=== PATIENT | female | born 1940 | race Caucasian/White ===

== ENCOUNTER → 2016-10-19 | Outpatient (CLI) | payer OTHER ==
[~2016-10-19] MED LIST: IOPAMIDOL (ISOVUE-300) 100 ML BTL ONE
[2016-10-19 13:09] LABS: CREATININE 0.8 mg/dL (0.6-1.0); GLOMERULAR FILTRATION RATE > 60
== END ==
LOC: FIMAGING 12:23
PROVIDERS: ATTEND Specialist
DX: Z09 Encounter for follow-up examination after completed treatment for conditions other than malignant neoplasm (principal); Z85.528 Personal history of other malignant neoplasm of kidney; Z90.5 Acquired absence of kidney; N20.0 Calculus of kidney
CPT/HCPCS: 74160; Q9967

== ENCOUNTER → 2017-02-05 | Outpatient (CLI) | payer OTHER | LOC: FIMAGING 09:53 | PROVIDERS: ATTEND Internal Medicine Hematology & Oncology | DX: Z12.31 Encounter for screening mammogram for malignant neoplasm of breast (principal) | CPT/HCPCS: G0202 ==

== ENCOUNTER → 2017-02-09 | Outpatient (CLI) | payer OTHER ==
[~2017-02-09] MED LIST changes: +GADOBUTROL 10 ML VIAL IVP ONE; -IOPAMIDOL (ISOVUE-300) 100 ML BTL ONE
== END ==
LOC: FIMAGING 19:26
PROVIDERS: ATTEND Internal Medicine Hematology & Oncology
DX: M47.896 Other spondylosis, lumbar region (principal); M47.897 Other spondylosis, lumbosacral region; M47.894 Other spondylosis, thoracic region; M48.06 Spinal stenosis, lumbar region; M48.07 Spinal stenosis, lumbosacral region; M99.73 Connective tissue and disc stenosis of intervertebral foramina of lumbar region; M89.38 Hypertrophy of bone, other site
CPT/HCPCS: 72158; A9585

== ENCOUNTER → 2017-11-11 | Outpatient (CLI) | payer OTHER | LOC: FIMAGING 12:39 | PROVIDERS: ATTEND Nurse Practitioner | DX: M51.36 Other intervertebral disc degeneration, lumbar region (principal) ==

== ENCOUNTER → 2018-01-19 | Outpatient (CLI) | payer OTHER | DX: M81.0 Age-related osteoporosis without current pathological fracture (principal); Z78.0 Asymptomatic menopausal state; Z91.81 History of falling ==

== ENCOUNTER 2018-01-27 09:15 | Inpatient (IN) | payer OTHER ==
[2018-01-31] MEDS ORDERED: ceFAZolin 2 GM/DEXTROSE 100 ML IV ONE (10:49)
[2018-01-31] MEDS ORDERED: GABAPENTIN 300 MG CAP PO ONE (10:49)
[2018-01-31] MEDS ORDERED: morphINE SR 15 MG TAB PO ONE (10:49)
[2018-01-31] MEDS ORDERED: ACETAMINOPHEN 500 MG TAB PO ONE (10:49)
[2018-02-24] MEDS ORDERED: LR 1,000 ML IV ONE (05:51)
[2018-02-24] MEDS ORDERED: LIDOCAINE 2% 100 MG/5 ML SYR ONE (06:56)
[2018-02-24] MEDS ORDERED: SUCCINYLCHOLINE CHLORIDE 200 MG/10 ML SYR IVP ONE (06:56)
[2018-02-24] MEDS ORDERED: fentaNYL 250 MCG/5 ML INJ ONE (06:57)
[2018-02-24] MEDS ORDERED: PHENYLEPHRINE HCL 100 MCG/ML SYR ONE (06:57)
[2018-02-24] MEDS ORDERED: MIDAZOLAM 2 MG/2 ML VIAL ONE (06:57)
[2018-02-24] MEDS ORDERED: PROPOFOL/EMULSION 500 MG/50 ML BOTTLE IV ONE ×4 (06:57→08:26)
[2018-02-24] MEDS ORDERED: GLYCOPYRROLATE 0.2 MG/1 ML VIAL ONE (06:58)
[2018-02-24] MEDS ORDERED: BUPIVACAINE 0.5% 30 ML SDV ONE (06:59)
[2018-02-24] MEDS ORDERED: THROMBIN (BOVINE) 20,000 UNIT VIAL TP ONE (06:59)
[2018-02-24] MEDS ORDERED: CHLORHEXIDINE GLUC HIBICLENS 118 ML BTL TP ONE (06:59)
[2018-02-24] MEDS ORDERED: BACITRACIN 50,000 UNITS/10 ML SYR IRR ONE (06:59)
[2018-02-24] MEDS ORDERED: CITRATE DEXTROSE SOLN 500 ML BAG ONE (06:59)
[2018-02-24] MEDS ORDERED: ACETAMINOPHEN 500 MG TAB PO ONE (07:05)
[2018-02-24] MEDS ORDERED: GABAPENTIN 300 MG CAP PO ONE (07:05)
[2018-02-24] MEDS ORDERED: ceFAZolin 2 GM/DEXTROSE 100 ML IV ONE (07:05)
[2018-02-24] MEDS ORDERED: morphINE SR 15 MG TAB PO ONE (07:07)
--- NOTE | 2018-02-24 07:09 | PDHPUP ---
History & Physical Update H&P update statement: This history and physical update is based on an assessment of the patient which was completed after admission or registration (within 24 hours), but prior to the surgery/procedure. H&P update: H&P reviewed & patient examined, no change in patient's condition since H&P completed (Consents signed and site marked. All questions answered.)
--- NOTE | 2018-02-24 08:19 | PDANEPAE ---
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 URGE INCONTINECE. WEARS BRIEFS OR PADS - Liver History Hx Hepatic Disorders: No - Neurological & Psychiatric Hx Hx Neurological and Psychiatric Disorders: Yes Neurological / Psychiatric History Comment: DEPRESSION/ INSOMNIA - Cancer History Hx Cancer: Yes Cancer History Comment: ANAL CANCER 03/2003 S/P CHEMO AND RADIATION - Congenital Disorder History Hx Congenital Disorders: No - GI History Hx Gastrointestinal Disorders: Yes Gastrointestinal History Comment: HX OF ANAL CA. HX OF COLONOSCOPIES. INCONTINENCE OF BOWELS NOT FREQUENT URINARY INCONTINENCE - Other Health History Other Health History: DRY MACULAR DEGENERATION. OCCASSIONAL SKIN CA. Osteoporosis - Chronic Pain History Chronic Pain: Yes (LOW BACK PAIN AT TIMES) - Surgical History Prior Surgeries: COLONOSCOPY 2010. LEFT FOOT SURGERY 07/2007 BUNIONECTOMY AND HAMMERTOE REPAIR. MOHS SURGERY FOR BASAL CELL CA A COUPLE TIMES. HYSTERECTOMY PARTIAL VAGINAL 1980 FOR "ABNORMAL CELLS". LEFT LEG SURGERY 2010 PERINEAL NEUROPATHY. Left partial nephrectomy ANE Review of Systems Review of Systems: - Exercise capacity METS (RN): 4 METS ANE Patient History - Allergies Allergies/Adverse Reactions: No Known Allergies Allergy (Verified 02/21/18 17:33) - Home Medications Home Medications: C/E/Zn/Cu/OM3/DHA/EPA/LUT/ZEAX [Preservision Areds 2 Softgel] 1 each PO BID #0 01/02/16 [Last Taken 02/18/18] Herbals/Supplements -Info Only 1 ea PO DAILY 01/02/16 [Last Taken 02/18/18] Hydrocodone/Acetaminophen [Daphne 5/325 (*)] 1 each PO DAILY PRN 01/02/16 [Last Taken 02/23/18] Loperamide HCl [Loperamide] 4 mg PO DAILY 01/02/16 [Last Taken 02/23/18] Talala-3 Fatty Acids [Fish Oil 1000 mg (*)] 1,000 mg PO BID 01/02/16 [Last Taken 02/18/18] Venlafaxine HCl 75 mg PO DAILY 01/02/16 [Last Taken 02/23/18] Acetaminophen [Tylenol 325mg (*)] 650 mg PO Q4 PRN 01/13/18 [Last Taken 02/23/18 ] Acetamn/Diphenhydramine 500/25 [Tylenol PM (*)] 1 each PO HS PRN 01/13/18 [Last Taken 02/23/18] Multivitamins [Multivitamin (*)] 1 each PO DAILY 01/13/18 [Last Taken 02/18/18] - NPO status NPO Since - Liquids (Date): 02/24/18 NPO Since - Liquids (Time): 01:35 NPO Since - Solids (Date): 02/23/18 NPO Since - Solids (Time): 01:35 - Smoking Hx Smoking Status: Never smoked - Family Anes Hx Family Hx Anesthesia Complications: NONE ANE Labs/Vital Signs - Vital Signs Blood Pressure: 99/60 Heart Rate: 59 Respiratory Rate: 16 O2 Sat (%): 93 Height: 153.67 cm Weight: 47.627 kg ANE Physical Exam - Airway Neck exam: FROM Mallampati Score: Class 2 Mouth exam: normal dental/mouth exam - Pulmonary Pulmonary: no respiratory distress - Cardiovascular Cardiovascular: regular rate and rhythym - ASA Status ASA Status: II ANE Anesthesia Plan Anesthesia Plan: general endotracheal anesthesia (Neuro motor monitoring, anesthetic to maximize this process w/o compromising safety)
[2018-02-24] MEDS ORDERED: diphenhydrAMINE 25 MG CAP PO PRN (08:48)
[2018-02-24] MEDS ORDERED: BISACODYL 10 MG SUPP PR PRN (08:48)
[2018-02-24] MEDS ORDERED: LACTULOSE 20 GM/30 ML UDCUP PO PRN (08:48)
[2018-02-24] MEDS ORDERED: ONDANSETRON 4 MG/2 ML VIAL IVP PRN (08:48)
[2018-02-24] MEDS ORDERED: POLYETHYLENE GLYCOL 3350 17 GM PKT PO PRN (08:48)
[2018-02-24] MEDS ORDERED: ONDANSETRON DISINTEGRATING 4 MG TAB PO PRN (08:48)
[2018-02-24] MEDS ORDERED: MAGNESIUM HYDROXIDE 30 ML UDCUP PO PRN (08:48)
--- NOTE | 2018-02-24 08:56 | POSTOPPROG ---
Post Op Note Date of Operation: 02/28/18 Surgeon: Artem Esquivel Key Filer: CHARLY Persaud Anesthesia: GET(General Endotracheal) Pre-op Diagnosis: lumbar stenosis Post-op Diagnosis: lumbar stenosis Indication: lumbar stenosis Procedure: L5/S1 ALIF Inf/Abcess present in the surg proc area at time of surgery?: No PA Addendum - Addendum .: S: resting comfortably O: NAD A&OX 3 MAEX4 5/5 and equal in BUE & BLE A/P 77F s/p L5/S1 ALIF -Optimize pain management -CLD -post op xrays pending -LSO when OOB -PT/OT -DVT Prohphx: TEDS, SCDs, Lovenpox okay POD1 -Please notify NS with any change in neuro/motor exam
[2018-02-24] MEDS ORDERED: NS 1,000 ML IV SCH (09:00)
[2018-02-24] MEDS ORDERED: NEOSTIGMINE METHYLSULFATE 5 MG/5 ML SYR ONE (09:59)
[2018-02-24] MEDS ORDERED: HYDROmorphONE/DILAUDID 2 MG/ML INJ ONE (10:00)
[2018-02-24] MEDS ORDERED: NALOXONE HCL 0.4 MG/ML INJ ONE (10:25)
--- NOTE | 2018-02-24 11:42 | GOP ---
DATE OF OPERATION: 02/24/2018 SURGEON: Artem Esquivel MD REHAB/PRE VOCATIONAL COUNSELOR: distribution center assistant, Barrett Mcmahon. ANESTHESIA: General. PREOPERATIVE DIAGNOSIS: 1. Lumbar spondylosis L2 through S1 with spinal stenosis. 2. L5-S1 grade 1/grade 2 spondylolisthesis with bilateral spondylolysis and severe bilateral foramin al stenosis. 3. Lower extremity radiculopathy and weakness. 4. Treatment refractory to nonoperative intervention. POSTOPERATIVE DIAGNOSIS: 1. Lumbar spondylosis L2 through S1 with spinal stenosis. 2. L5-S1 grade 1/grade 2 spondylolisthesis with bilateral spondylolysis and severe bilateral foramin al stenosis. 3. Lower extremity radiculopathy and weakness. 4. Treatment refractory to nonoperative intervention. PROCEDURE PERFORMED: 1. Anterior arthrodesis with approach to L5-S1. 2. L5-S1 discectomy and interbody fusion using a 12 mm 8 degree perimeter peek cage for the morseliz ed autograft and allograft. 3. Anterior lumbar fusion L5-S1 with a large Seeker Wire[employer]stronic Pivox plate with 1 screw in L5 and 1 screw in S1. 4. Use of intraoperative fluoroscopy, less than 1 hour of physician time. 5. Use of neuromonitoring. FINDINGS: SPECIMENS: None. ESTIMATED BLOOD LOSS: 800 mL. INDICATIONS: Ms. Rojas is a 77-year-old woman, who has had bilateral lower extremity radiculopathy with foot weakness. She had evidence of spondylosis with stenosis L2 through L5 with a grade 2 spon dylolisthesis at L5-S1 with bilateral foraminal stenosis. After discussion of the risks, benefits, a nd treatment alternatives, we decided to proceed forth with surgical intervention as described above. The goal of surgery is to see if we can avoid completing a large posterior surgery and get away wit h an anterior surgery alone to help decompress her pain and nerve roots from her pain and weakness st andpoint. This is considered to be stage I of potentials 2 stage surgical procedure, in which stage 2 will be determined at a later time. DESCRIPTION OF PROCEDURE: The patient was brought to the operating theater and underwent general end otracheal anesthesia without complications. She had Venodynes, DENYS hose, and appropriate lines place d by Anesthesia. Her arms were outstretch at her sides and a small bump placed on the small of her l umbar spine. The lower abdomen was then prepped and draped in the usual sterile surgical fashion. A time-out was completed per protocol. The patient received antibiotics within [address] Del Valle and his team will dictate, in a separate operative report, the anterior abdominal approach to the L5-S1 level. Once we confirmed our location, we then incised the L5-S1 disk space with an 11 blade. We then completed an L5-S1 diskectomy and prepared the cartilaginous endplates. We sequentia lly distract the L5-S1 disk interspace and after measuring the interbody space, we placed a 12 mm 8 d egree perimeter PEEK cage filled with morselized autograft and allograft into the L5-S1 disk space. AP and lateral x-rays demonstrated good placement of the hardware. We then secured a large Medtronic Pivox plate with a screw into L5 and a screw in S1. X-rays demonstrated good placement of this hard merritt. At this point, Dr. Tea Del Valle and his team will dictate in a separate operative report the abdominal closure. At this point, there were no changes in neuro monitoring and the patient tolerate d this portion of procedure well. The sponge, needle and instrument counts were correct in this portion of the procedure. COMPLICATIONS: None. CO-SURGEON: Dr. Baldo Del Valle. /[id number]/MODL
[2018-02-24] MEDS ORDERED: NALOXONE HCL 0.4 MG/ML INJ IVP PRN (11:48)
[2018-02-24] MEDS ORDERED: MEPERIDINE 25 MG/0.5 ML AMP IVP PRN (11:48)
[2018-02-24] MEDS ORDERED: HYDROmorphONE/DILAUDID 2 MG/ML INJ IVP PRN (11:48)
[2018-02-24] MEDS ORDERED: oxyCODONE IR 5 MG TAB PO PRN (11:48)
--- NOTE | 2018-02-24 12:19 | POSTOPPROG ---
Post Op Note Date of Operation: 02/24/18 Surgeon: Baldo Del Valle Inspector Repairer [place]: ALTA Anesthesiologist: MASSIELS Anesthesia: GET(General Endotracheal) Pre-op Diagnosis: SPINAL INSTABILITY Post-op Diagnosis: SAME Indication: EXPOSURE FOR SPINE FUSION Procedure: ANTERIOR EXPOSURE L5-S1 Findings: ADEQUATE EXPOSURE Inf/Abcess present in the surg proc area at time of surgery?: No Depth: Organ Space EBL: Minimal Complications: NONE
--- NOTE | 2018-02-24 13:48 | PDMN ---
Medical Necessity Medical necessity: Pt meets INPT criteria per MD as of 02/24/18 (CASE Inpt Only surgery L5/S1 ALIF).
--- NOTE | 2018-02-24 14:41 | POSTANESTH ---
Post Anesthetic Evaluation Cardiovascular Status: Normal, Stable Respiratory Status: Similar to Pre-op Cond. Level of Consciousness/Mental Status: Can Participate in Eval, Alert and Oriented Pain Control: Adequate, Prn Tx Ordered Nausea/Vomiting Control: Adequate, Prn Tx Ordered Complications Possibly Related to Anesthesia: None Noted (sleept and prolonged PACU stay because she wanted to sleep on her belly and that disrupted her incision causing bleeding. surgery requested she stay until that was under control)
[2018-02-24] MEDS: ceFAZolin 2 GM/DEXTROSE 100 ML IV SCH ×2 (15:00→22:53)
[2018-02-24] MEDS: LOPERAMIDE HCL 2 MG CAP PO SCH (15:37)
[2018-02-24] MEDS: FAMOTIDINE 20 MG TAB PO SCH ×2 (15:37→22:52)
[2018-02-24] MEDS: MULTIVITAMINS 1 EACH TAB PO SCH (15:37)
[2018-02-24] MEDS: SENNOSIDES/DOCUSATE SODIUM TAB PO SCH ×2 (15:38→22:52)
[2018-02-24] MEDS: METHOCARBAMOL 750 MG TAB PO PRN (15:39)
[2018-02-24] MEDS: VENLAFAXINE HCL 75 MG TAB PO SCH (15:52)
[2018-02-25 04:46] LABS: PLATELET COUNT 277 10^3/uL (150-400)
--- NOTE | 2018-02-25 07:56 | NEUSURGPN ---
Date of Surgery: 02/24/18 Post Op Day: 1 Assessment/Plan: Assessment: 77F s/p L5/S1 ALIF POD#1 Plan: -Pt reports improvement in pre operative BLE pain -Optimize pain management, currently well controlled -CLD, diet per general surgery -post op xrays pending -LSO when OOB -PT/OT -DVT Prohphx: TEDS, SCDs, Lovenox okay POD1-today -Discussed patient with Dr Esquivel Please call neurosurgery with any questions/concerns Subjective: Doing well this am, abdomen sore Objective: AxO x3 PERRLA 5/5 BUE, BLE sensation intact to light touch BLE Dressing some dried SA fluid on left side, incision CDI Neuro Check Frequency: per routine Urinary Catheter in Place: No - Physician Discussed Patient with Dr.: Esquivel Neurosurgery Physical Exam - Vitals, I&O, Labs I and O 02/24/18 02/25/18 02/26/18 05:59 05:59 05:59 Intake Total 2416 Output Total 1220 Balance 1196 Weight 47.627 kg Intake: IV Intake (ml) 1700 IV Infused (ml) 716 Lr 1,000 ml @ As Directed 239 IV ONCE ONE Rx#: [id number] Ns 1,000 ml @ 75 mls/hr 377 IV CONT ELLYN Rx#: [id number] ceFAZolin 2 GM/DEXTROSE 100 100 ml @ 200 mls/hr IV Q8HRS ELLYN Rx#:[id number] Output: Urine (ml) 1220 Catheter 1220 Vital Signs Temp Pulse Resp BP Pulse Ox 36.8 C 77 16 110/47 L 97 02/24/18 23:22 02/24/18 23:22 02/24/18 23:22 02/24/18 23:22 02/24/18 23:22 Laboratory Results 02/25/18 04:23 ICD10 Worksheet Patient Problems: Problems Problem Status Onset Clear cell carcinoma of kidney Acute Dehydration Acute Renal mass, left Acute Vomiting and diarrhea Acute
[2018-02-25] MEDS: FAMOTIDINE 20 MG TAB PO SCH ×2 (10:11→10:28)
[2018-02-25] MEDS: METHOCARBAMOL 750 MG TAB PO PRN (10:23)
[2018-02-25] MEDS: LOPERAMIDE HCL 2 MG CAP PO SCH (10:23)
[2018-02-25] MEDS: VENLAFAXINE HCL 75 MG TAB PO SCH (10:23)
[2018-02-25] MEDS: SENNOSIDES/DOCUSATE SODIUM TAB PO SCH ×2 (10:24→20:49)
[2018-02-25] MEDS: MULTIVITAMINS 1 EACH TAB PO SCH (10:24)
[2018-02-25] MEDS: ENOXAPARIN 40 MG/0.4 ML SYR SC SCH (10:25)
--- NOTE | 2018-02-25 13:11 | SOAPPROG ---
SOAP Progress Note Assessment/Plan: Assessment: 77 y/o M s/p anterior exposure for L5-S1 ALIF POD #1 S: No complaints. Pain controlled. Denies passing gas yet. O: Alert Afebrile RRR No increased WOB Abdomen: dressing taken down. Incision cdi, abdomen soft, nontender, +BS Plan: Advance to regular diet. 02/25/18 13:09 Objective: Vital Signs Temp Pulse Resp BP Pulse Ox 36.7 C 72 16 112/54 L 98 02/25/18 11:49 02/25/18 11:49 02/25/18 11:49 02/25/18 11:49 02/25/18 11:49 Laboratory Results 02/25/18 04:23 02/24/18 02/25/18 02/26/18 05:59 05:59 05:59 Intake Total 2416 Output Total 1220 300 Balance 1196 -300 ICD10 Worksheet Patient Problems: Problems Problem Status Onset Clear cell carcinoma of kidney Acute Dehydration Acute Renal mass, left Acute Vomiting and diarrhea Acute
[2018-02-25] MEDS: HYDROCODONE/APAP 5/325 TAB PO PRN ×2 (14:23→20:49)
--- NOTE | 2018-02-25 15:47 | ASMTCMCOM ---
CM Note CM Note Notes: Pt s/p planned surgery for lumbar stenosis. Pt resides with spouse who can assist at home. OT/PT rec home. Pt likely independent, CM to follow pt progress. D/c plan of care: Most likely home with spouse support Date Signed: 02/25/2018 03:46 PM Electronically Signed By:ALYSSA Reyna
--- NOTE | 2018-02-26 08:28 | SOAPPROG ---
SOAP Progress Note Assessment/Plan: Assessment: 77 yo F POD #2 L5/S1 ALIF Plan: -neuro: stable and doing well overall -Optimize pain management, currently well controlled -diet per general surgery -post op xrays look good -LSO when OOB -PT/OT -DVT Prohphx: TEDS, SCDs, Lovenox - possible discharge today if doing well -Discussed patient with Dr Nicole Please call neurosurgery with any questions/concerns 02/26/18 08:26 Subjective: continued incisional pain, no leg pain, no weakness. Objective: Vital Signs Temp Pulse Resp BP Pulse Ox 37.3 C 69 12 128/60 H 97 02/26/18 08:00 02/26/18 08:00 02/26/18 08:00 02/26/18 08:00 02/26/18 08:00 Laboratory Results 02/25/18 04:23 02/25/18 02/26/18 02/27/18 05:59 05:59 05:59 Intake Total 2416 Output Total 1220 950 Balance 1196 -950 AAOx4, +FC PERRL, EOMI, no facial droop 5/5 + light touch C/D/I ICD10 Worksheet Patient Problems: Problems Problem Status Onset Clear cell carcinoma of kidney Acute Dehydration Acute Renal mass, left Acute Vomiting and diarrhea Acute
[2018-02-26] MEDS: SENNOSIDES/DOCUSATE SODIUM TAB PO SCH ×2 (08:35→20:35)
[2018-02-26] MEDS: ENOXAPARIN 40 MG/0.4 ML SYR SC SCH (08:36)
[2018-02-26] MEDS: VENLAFAXINE HCL 75 MG TAB PO SCH (08:36)
[2018-02-26] MEDS: FAMOTIDINE 20 MG TAB PO SCH (08:36)
[2018-02-26] MEDS: MULTIVITAMINS 1 EACH TAB PO SCH (08:36)
[2018-02-26] MEDS: LOPERAMIDE HCL 2 MG CAP PO SCH (08:43)
[2018-02-26] MEDS: HYDROCODONE/APAP 5/325 TAB PO PRN ×3 (08:59→16:32)
--- NOTE | 2018-02-26 17:46 | SOAPPROG ---
SOAP Progress Note Assessment/Plan: Assessment: AFEBRILE/VITAL SIGNS OKAY/URINE OUTPUT OKAY/BACK X-RAYS GOOD ABDOMEN SOFT WITH BOWEL SOUNDS AND POSITIVE FLATUS BUT NO BM STARTING TO EAT SLIGHTLY MORE Plan: HOME WHEN EATING WELL 02/26/18 17:45 Objective: Vital Signs Temp Pulse Resp BP Pulse Ox 37.0 C 72 16 125/62 H 95 02/26/18 15:52 02/26/18 15:52 02/26/18 15:52 02/26/18 15:52 02/26/18 15:52 Laboratory Results 02/25/18 04:23 02/25/18 02/26/18 02/27/18 05:59 05:59 05:59 Intake Total 2416 200 Output Total 1220 950 Balance 1196 -950 200 ICD10 Worksheet Patient Problems: Problems Problem Status Onset Clear cell carcinoma of kidney Acute Dehydration Acute Renal mass, left Acute Vomiting and diarrhea Acute
[2018-02-27 07:21] VITALS: BP 136/61
[2018-02-27] MEDS: VENLAFAXINE HCL 75 MG TAB PO SCH (09:16)
[2018-02-27] MEDS: FAMOTIDINE 20 MG TAB PO SCH (09:16)
[2018-02-27] MEDS: MULTIVITAMINS 1 EACH TAB PO SCH (09:17)
[2018-02-27] MEDS: ENOXAPARIN 40 MG/0.4 ML SYR SC SCH (09:17)
[2018-02-27] MEDS: SENNOSIDES/DOCUSATE SODIUM TAB PO SCH (09:20)
[2018-02-27] MEDS: LOPERAMIDE HCL 2 MG CAP PO SCH (09:20)
--- NOTE | 2018-02-27 09:36 | SOAPPROG ---
SOAP Progress Note Assessment/Plan: Assessment: AFEBRILE/VITAL SIGNS OKAY/URINE OUTPUT OKAY/BACK X-RAYS GOOD ABDOMEN SOFT WITH BOWEL SOUNDS AND POSITIVE FLATUS BUT NO BM STARTING TO EAT SLIGHTLY MORE Plan: HOME WHEN EATING WELL 02/26/18 17:45 02/27/18 09:36 ABDOMEN SOFT/WOUND OKAY/AFEBRILE/VITAL SIGNS STABLE/POSITIVE BM IN FLATUS PROBABLY HOME TODAY PER NEUROSURGERY Objective: Vital Signs Temp Pulse Resp BP Pulse Ox 36.9 C 69 14 136/61 H 89 L 02/27/18 07:20 02/27/18 07:20 02/27/18 07:20 02/27/18 07:20 02/27/18 07:20 Laboratory Results 02/25/18 04:23 02/26/18 02/27/18 02/28/18 05:59 05:59 05:59 Intake Total 200 Output Total 950 1 Balance -950 199 ICD10 Worksheet Patient Problems: Problems Problem Status Onset Clear cell carcinoma of kidney Acute Dehydration Acute Renal mass, left Acute Vomiting and diarrhea Acute
[2018-02-27] MEDS ORDERED: HYDROCODONE/APAP 5/325 TAB PO PRN (10:36)
[2018-02-27] MEDS ORDERED: ACETAMINOPHEN 325 MG TAB PO PRN (10:37)
--- NOTE | 2018-02-27 12:12 | SOAPPROG ---
SOAP Progress Note Assessment/Plan: Assessment: 77 yo F POD #3 L5/S1 ALIF Plan: -neuro: stable and doing well overall -Optimize pain management, currently well controlled -diet per general surgery -post op xrays look good -LSO when OOB -PT/OT -DVT Prohphx: TEDS, SCDs, Lovenox - possible discharge today if doing well -Discussed patient with Dr Nicole Please call neurosurgery with any questions/concerns 02/26/18 08:26 02/27/18 12:11 Subjective: pain improving, no leg pain, + BM Objective: Vital Signs Temp Pulse Resp BP Pulse Ox 36.9 C 69 14 136/61 H 89 L 02/27/18 07:20 02/27/18 07:20 02/27/18 07:20 02/27/18 07:20 02/27/18 07:20 Laboratory Results 02/25/18 04:23 02/26/18 02/27/18 02/28/18 05:59 05:59 05:59 Intake Total 200 Output Total 950 1 Balance -950 199 AAOx4, +FC PERRL, EOMI, no facial droop 5/5 + light touch C/D/I ICD10 Worksheet Patient Problems: Problems Problem Status Onset Clear cell carcinoma of kidney Acute Dehydration Acute Renal mass, left Acute Vomiting and diarrhea Acute
--- NOTE | 2018-02-27 12:27 | ASMTLACE ---
JOHNNIE Length of stay for Answers: 3 days current admission Acuity / Level of Answers: Yes Care: Did the patient have an inpatient admission? Comorbidities - select Answers: Opioid dependence all that apply / Chronic pain Other Notes: Back surgery # of Emergency department Answers: 0 visits in the last 6 months Social determinants Answers: Mental health diagnosis (anxiety, depression, pers onality disorders, etc.) Score: 14 Date Signed: 02/27/2018 12:26 PM Electronically Signed By:Chelsey Rowland LCSW
--- NOTE | 2018-02-27 12:29 | ASMTDCNOTE ---
Case Management Discharge Discharge Order Complete? Answers: Yes Patient to Obtain Answers: via Family Medications Transportation Arranged Answers: Family/Friends Transport will Pick (Date 02/27/2018 01:00 PM & Time) Family Notified Answers: Yes Notes: to transport Discharge Comments Notes: Patient has been discharged home with . No discharge needs noted. Date Signed: 02/27/2018 12:28 PM Electronically Signed By:Chelsey Rowland LCSW
--- NOTE | 2018-02-27 12:34 | ASDISCHSUM ---
Discharge Information Plan Status:Home with No Needs Medically Cleared to Leave:02/27/2018 Discharge Date:02/27/2018 CM D/C Disposition:Home, Routine, Self-Care ADT D/C Disposition:Home, Routine, Self-Care Projected Discharge Date:02/27/2018 12:00 PM Transportation at D/C:Family Discharge Delay Reason: Follow-Up Date:02/27/2018 12:00 PM Discharge Slot:1 - 8:01 am - 12:00 noon Final Diagnosis:L5/S1 ALIF Placement Information Patient Contact Information Contact Name:DEJON Relationship: Address:[address] City:[place] Alternate Phone: [facility]/Zip Code:[place] [address] Email: Financial Information Financial Class:Medicare Primary Plan Desc:MEDICARE INPATIENT Primary Plan Number:[id number] Secondary Plan Desc:MARIBEL OATES Secondary Plan Number:[id number] Assessment Information LACE LACE Length of stay for Answers: 3 days current admission Acuity / Level of Answers: Yes Care: Did the patient have an inpatient admission? Comorbidities - select Answers: Opioid dependence all that apply / Chronic pain Other Notes: Back surgery # of Emergency department Answers: 0 visits in the last 6 months Social determinants Answers: Mental health diagnosis (anxiety, depression, pers onality disorders, etc.) Score: 14 Date Signed: 02/27/2018 12:26 PM Electronically Signed By:Chelsey Rowland LCSW [facility] TONY Progress Note TONY Selby CM Note Notes: Pt s/p planned surgery for lumbar stenosis. Pt resides with spouse who can assist at home. OT/PT rec home. Pt likely independent, CM to follow pt progress. D/c plan of care: Most likely home with spouse support Date Signed: 02/25/2018 03:46 PM Electronically Signed By:ALYSSA Reyna Case Management Discharge Plan Note Case Management Discharge Discharge Order Complete? Answers: Yes Patient to Obtain Answers: via Family Medications Transportation Arranged Answers: Family/Friends Transport will Pick (Date 02/27/2018 01:00 PM & Time) Family Notified Answers: Yes Notes: to transport Discharge Comments Notes: Patient has been discharged home with . No discharge needs noted. Date Signed: 02/27/2018 12:28 PM Electronically Signed By:Chelsey Rowland LCSW Intervention Information Intervention Type:*IM-Signed Date of Service:02/27/2018 12:34 PM Patient Type:Inpatient Staff Member:GENEVA Rowland Judith Hours:0.25 Discipline:Chemist Instrumentation Severity: Comment:
--- NOTE | 2018-02-27 12:41 | GOP ---
DATE OF OPERATION: 02/24/2018 SURGEON: Baldo Del Valle MD EDGER FEEDER: Giselle Lino NP ANESTHESIOLOGIST: Dr. Markham. PREOPERATIVE DIAGNOSIS: Spinal instability. POSTOPERATIVE DIAGNOSIS: Spinal instability. PROCEDURE PERFORMED: The patient was taken to the operating room where she received satisfactory gen eral endotracheal anesthesia by Dr. Markham, placed in supine position, prepped and draped in the usual sterile fashion. A low pelvic Pfannenstiel type incision was made and carried down through subcutan eous tissue. The rectus sheath was divided transversely and elevated up off the rectus muscles. The peritoneum was divided in the midline and the rectus muscles were retracted laterally. The small fredi wel and colon were packed away, exposing the sacral prominence. The midline retroperitoneum was open . The sacral vessels were multiply hemoclipped and divided, and the iliac veins were carefully expos ed and dissected free. The left iliac vein was quite enormous with several branches that had to be l igated. The L5-S1 joint space was identified using fluoroscopy and was adequately exposed with retra ction of the iliac vein and arteries bilaterally with the Omni retractor. At that point, the procedu re was turned over to Dr. Esquivel, who performed an anterior diskectomy and spinal fusion to be dictat ed separately. Following completion of his procedure, hemostasis was assured, the retroperitoneum wa s closed with a running 0 Vicryl suture, the peritoneum was closed with a running 0 Vicryl suture and the rectus fascia was closed with a running #1 PDS suture. The wound was infiltrated with 0.5% Darin karen. Subcu was closed with a running 3-0 Vicryl, skin with a 4-0 Monocryl subcuticular stitch. She tolerated the procedure well. Blood loss was negligible from our portion of the procedure. FINDINGS: The patient was found to have spondylolisthesis at L5-S1, but adequate exposure. DESCRIPTION OF PROCEDURE: Anterior spine exposure for L5-S1. /[id number]/MODL
== END 2018-02-27 13:45 | disposition home or self-care (01) | DRG 460 ==
LOC: F3N 02-24 05:13
PROVIDERS: ADMIT Neurological Surgery; ATTEND Neurological Surgery
DX: M47.26 Other spondylosis with radiculopathy, lumbar region (principal); M47.27 Other spondylosis with radiculopathy, lumbosacral region; M43.17 Spondylolisthesis, lumbosacral region; M48.061 Spinal stenosis, lumbar region without neurogenic claudication; M48.07 Spinal stenosis, lumbosacral region
CPT/HCPCS: 97116-GP; 97161-GP; 97165-GO; 97535-GO; C1713; G8978-GP-CJ; G8979-GP-CI; G8980-GP-CI; G8987-GO-CI; G8988-GO-CI; G8989-GO-CI; J0330; J0690; J1170; J1650; J2001; J2250; J2310; J2370; J2704; J2710; J3010; J7060

== ENCOUNTER → 2018-02-14 | Outpatient (CLI) | payer OTHER | LOC: FIMAGING 12:23 | PROVIDERS: ATTEND Internal Medicine | DX: Z12.31 Encounter for screening mammogram for malignant neoplasm of breast (principal) ==

== ENCOUNTER 2018-02-22 06:04 | Day surgery (SDC) | payer OTHER ==
[2018-02-22] MEDS ORDERED: NS 500 ML IV ONE (06:18)
[2018-02-22] MEDS ORDERED: MIDAZOLAM 2 MG/2 ML VIAL ONE (07:26)
[2018-02-22] MEDS ORDERED: fentaNYL 100 MCG/2 ML INJ ONE (07:26)
--- NOTE | 2018-02-22 07:28 | PDHPUP ---
History & Physical Update H&P update statement: This history and physical update is based on an assessment of the patient which was completed after admission or registration (within 24 hours), but prior to the surgery/procedure. H&P update: H&P reviewed & patient examined, no change in patient's condition since H&P completed
--- NOTE | 2018-02-22 07:50 | PDPROPOC ---
Sedation Plan of Care Sedation Plan of Care: vital signs stable, mental status noted, patient educated of risks, benefits, alternatives, patient can tolerate sedation ASA Classification: ASA 2 Planned drugs: fentanyl, midazolam Mallampati Score: Unable to assesss Mallampati Reference Image:
[2018-02-22] MEDS ORDERED: fentaNYL 100 MCG/2 ML INJ IVP ONE (08:00)
[2018-02-22 08:58] VITALS: BP 131/63
--- NOTE | 2018-02-27 17:37 | GOP ---
DATE OF OPERATION: 02/22/2018 SURGEON: Baldo Del Valle MD PREOPERATIVE DIAGNOSIS: History of anal cancer and lower gastrointestinal bleeding. POSTOPERATIVE DIAGNOSIS: 1. History of anal cancer and lower gastrointestinal bleeding. 2. Radiation proctitis. PROCEDURE PERFORMED: FINDINGS: The patient was found to have diffuse petechial hemorrhage from multiple areas in her rect um and sigmoid colon, thought to be secondary to radiation proctitis. DESCRIPTION OF PROCEDURE: Patient taken to the special procedure room where she received IV sedation . She was placed in the left lateral decubitus position. The anus was well lubricated and an anal e xam was unrevealing. The scope was introduced and passed with caution and some difficulty up to the splenic flexure. Good visualization was present. She did have a bit of tortuosity of the sigmoid co juan and she had a fair amount of petechial change to the mucosa of the distal sigmoid colon and rectu m consistent with radiation proctitis. No active bleeding. No mass lesions were seen. The scope wa s carefully withdrawn good visualization was maintained. She tolerated the procedure well. There we re no complications. Appropriate vital signs. PROCEDURE PERFORMED: Limited colonoscopy. /[id number]/MODL
== END 2018-02-22 08:55 | disposition home or self-care (01) ==
LOC: FSGY 06:04
PROVIDERS: ATTEND Surgery
PROC: 0WJP8ZZ Inspection of Gastrointestinal Tract, Via Natural or Artificial Opening Endoscopic Approach (ICD-10-PCS; principal; 2018-02-22 07:30)
DX: K62.7 Radiation proctitis (principal); K92.2 Gastrointestinal hemorrhage, unspecified; F41.8 Other specified anxiety disorders; G47.9 Sleep disorder, unspecified; Z87.891 Personal history of nicotine dependence; Z85.048 Personal history of other malignant neoplasm of rectum, rectosigmoid junction, and anus
CPT/HCPCS: J2250; J3010

== ENCOUNTER → 2018-04-15 | Outpatient (CLI) | payer OTHER | LOC: FLAB 15:46 | PROVIDERS: ATTEND Physician Assistant Surgical | DX: M47.817 Spondylosis without myelopathy or radiculopathy, lumbosacral region (principal); M54.5 Low back pain; M54.16 Radiculopathy, lumbar region; Z98.1 Arthrodesis status ==

== ENCOUNTER → 2018-06-13 | Outpatient (CLI) | payer OTHER | LOC: FIMAGING 12:44 | PROVIDERS: ATTEND Physician Assistant | DX: M47.817 Spondylosis without myelopathy or radiculopathy, lumbosacral region (principal); M54.16 Radiculopathy, lumbar region; Z98.1 Arthrodesis status ==

== ENCOUNTER → 2018-10-05 | Outpatient (CLI) | payer OTHER | LOC: FIMAGING 14:40 | PROVIDERS: ATTEND Physician Assistant Surgical | DX: M43.17 Spondylolisthesis, lumbosacral region (principal); M43.16 Spondylolisthesis, lumbar region; Z98.1 Arthrodesis status; M47.9 Spondylosis, unspecified ==